=== PATIENT | female | born 1940 | race Caucasian/White ===

== ENCOUNTER → 2016-09-11 | Outpatient (CLI) | payer MEDICARE, MEDICAID ==
--- NOTE | 2016-09-11 16:00 | WOMENS IMAGING REPORT ---
EXAM DESCRIPTION: BONE DENSITY HIP/SPINE COMPLETED DATE/TIME: 09/11/2016 3:38 pm REASON FOR STUDY: M81.0 M81.0 AGE-RELATED OSTEOPOROSIS W/O CURRENT PATHOLOGICAL FRAC COMPARISON: None. TECHNIQUE: Dual-Energy X-ray Absorptiometry (DEXA) of the AP Spine and Hip. LIMITATIONS: None. FINDINGS: LUMBAR SPINE: The bone mineral density (BMD) measured from L1-L4 in the AP projection correlates with a T-score of -0.9, which is normal as defined by the World Health Organization. HIP: The bone mineral density (BMD) measured in the left hip correlates with a T-score of -2.9, which is o steoporosis as defined by the World Health Organization. IMPRESSION: 1. LUMBAR SPINE: NORMAL. 2. HIP: OSTEOPOROSIS. COMMENT: The World Health Organization defines low BMD as follows: T-score: Normal: Greater than -1.0 Osteopenia: Between -1.0 and -2.5 Osteoporosis: Less than -2.5 without fractures Established osteoporosis: Less than -2.5 with fractures In general, you may wish to consider: Diagnosis Treatment Follow-up DEXA Normal BMD Prevention 2-3 years Osteopenia Prevention/Therapy 1-2 years Osteoporosis Therapy Yearly TECHNICAL DOCUMENTATION: JOB ID: [id number] [employer]- All Rights Reserved
== END ==
LOC: WI 12:42
PROVIDERS: ATTEND Specialist
DX: M81.0 Age-related osteoporosis without current pathological fracture (principal)
CPT/HCPCS: 77080

== ENCOUNTER 2017-12-25 13:31 | Inpatient (IN) | payer MEDICARE, MEDICAID ==
--- NOTE | 2017-12-25 14:11 | ER Document Report ---
ED Cardiac - General Chief Complaint: Chest Pain > 30 Stated Complaint: CHEST PAIN Time Seen by Provider: 12/25/17 13:48 Mode of Arrival: Medic Information source: Patient, Relative TRAVEL OUTSIDE OF THE [place] IN LAST 30 DAYS: No - HPI Patient complains to provider of: Chest pain - 77-year-old female with a history of chronic pain as well as hypertension the presents for evaluation of intermittent left-sided chest pain which is developed over the last month but has been worsening and increasing in frequency more noticeable with exertion including things like vacuuming at home. She also generally feels short of breath during these episodes, with rest her episodes improved. Because the pain had increased in frequency they decided present for evaluation today, she denies any history of heart attack in the past, chest pain in the past, family history of heart attacks. - Related Data Allergies/Adverse Reactions: aspirin [Aspirin] Allergy (Severe, Verified 12/25/17 14:05) Hives caffeine [From Norgesic] Allergy (Severe, Verified 12/25/17 14:05) itching cefaclor [From Ceclor] Allergy (Severe, Verified 12/25/17 14:05) Shortness of Breath cephalexin [Cephalexin] Allergy (Severe, Verified 12/25/17 14:05) Shortness of Breath cephalexin monohydrate [From Keflex] Allergy (Severe, Verified 12/25/17 14:05) Shortness of Breath Choline Salicylate [From Trilisate] Allergy (Severe, Verified 12/25/17 14:05) Shortness of Breath Magnesium Salicylate [From Trilisate] Allergy (Severe, Verified 12/25/17 14:05) Shortness of Breath neomycin [Neomycin] Allergy (Severe, Verified 12/25/17 14:05) Hives norfloxacin [From Noroxin] Allergy (Severe, Verified 12/25/17 14:05) itching NSAIDS (Non-Steroidal Anti-Inflamma [Nsaids] Allergy (Severe, Verified 12/25/17 14:05) unsure orphenadrine citrate [From Norgesic] Allergy (Severe, Verified 12/25/17 14:05) itching piroxicam [From Feldene] Allergy (Severe, Verified 12/25/17 14:05) Shortness of Breath tetracycline [Tetracycline] Allergy (Severe, Verified 12/25/17 14:05) Shortness of Breath penicillin G [Penicillin G] Allergy (Verified 12/25/17 14:05) sob hives chloroncytin Allergy (Severe, Uncoded 12/25/17 14:05) unsure Past Medical History - General Information source: Patient, Relative - Social History Smoking Status: Unknown if Ever Smoked Family History: None - Past Medical History Cardiac Medical History: Reports: Hx Hypertension - contr meds Denies: Hx Heart Attack Pulmonary Medical History: Denies: Hx Asthma, Hx Bronchitis, Hx COPD, Hx Pneumonia Neurological Medical History: Denies: Hx Cerebrovascular Accident, Hx Seizures Musculoskeletal Medical History: Reports Hx Arthritis Past Surgical History: Denies: Hx Pacemaker - Immunizations Hx Diphtheria, Pertussis, Tetanus Vaccination: No Review of Systems - Review of Systems -: Yes All other systems reviewed and negative Physical Exam - Vital signs Vitals: Temp Pulse Resp BP Pulse Ox 97.5 F 65 18 131/75 H 95 12/25/17 13:49 12/25/17 13:49 12/25/17 13:49 12/25/17 13:49 12/25/17 13:49 - General General appearance: Appears well, Other - Diminutive chronically ill-appearing 77-year-old woman In distress: None - HEENT Head: Normocephalic Eyes: Normal Conjunctiva: Normal Cornea: Normal Extraocular movements intact: Yes Eyelashes: Normal - Respiratory Respiratory status: No respiratory distress Chest status: Nontender Breath sounds: Normal Chest palpation: Normal - Cardiovascular Rhythm: Regular Heart sounds: Normal auscultation Murmur: No Friction rub: No Genna's crunch: No - Abdominal Inspection: Normal Distension: No distension Tenderness: Nontender Organomegaly: No organomegaly - Back Back: Normal - Extremities General upper extremity: Normal inspection, Nontender, Normal ROM, Normal strength General lower extremity: Normal inspection, Nontender, Normal ROM, Normal strength - Neurological Neuro grossly intact: Yes Cognition: Normal Orientation: AAOx4 Anne-Marie Coma Scale Eye Opening: Spontaneous Anne-Marie Coma Scale Verbal: Oriented Coden Coma Scale Motor: Obeys Commands Coden Coma Scale Total: 15 - Psychological Associated symptoms: Normal affect Course - Re-evaluation Re-evalutation: 12/25/17 14:09 77-year-old female with a history consistent with possible unstable angina. Does not have known history of cardiac disease in the past previously has an EKG in our system from 2010 though she is uncertain at that visit was for. Her EKG today demonstrates Q waves in aVR, V1 V2 and T-wave inversions in V3 V4. Her age 77, her history is concerning, her risk factors are hypertension and arthritis, and total pending her troponin her heart score is 6. She is allergic to aspirin when asked what her reaction is she notes that her tongue swells up markedly as such we have deferred administration of aspirin at this time. We will obtain troponin, placed on monitor, basic chemistry as well as chest x- ray. Will plan for likely admission and monitoring in hospital. 12/25/17 16:11 Patient with elevated troponin, will repeat EKG, will initiate heparin, will initiate Plavix as patient is allergic to aspirin has anaphylaxis reaction with tongue swelling. Reassess patient currently she is hemodynamically stable, her EKG remains unchanged with what appears to be a Wellens formation in V1 V2 with persistent inversion and depressions through V5. Currently patient is chest pain-free. We will plan for this patient to be admitted to the hospital, reassessed and monitored. Currently whether precludes transfer of patient, has spoken to telemetry rn Dr. Macias who agrees to evaluate the patient as necessary, has agreed to evaluate the patient at the bedside in case of any status change. Spoke to the on-call hospitalist who is in agreement with evaluation and admission including admission to the stepdown. We will continue to monitor patient in emergency department reassess as necessary and plan for admission, she is received Plavix at this time as well as heparin. Spoke about the benefits and risks of potentially adding nitroglycerin or beta mohini but deferred to admitting hospitalist at this time. - Vital Signs Vital signs: Temp Pulse Resp BP Pulse Ox 97.5 F 65 16 131/75 H 95 12/25/17 13:49 12/25/17 13:49 12/25/17 14:02 12/25/17 13:49 12/25/17 14:02 - Laboratory Result Diagrams: 12/25/17 13:58 12/25/17 13:58 Laboratory results interpreted by me: 12/25/17 12/25/17 13:58 13:58 AST 43 H Creatine Kinase 137 H CK-MB (CK-2) 4.91 H Critical Care Note - Critical Care Note Total time excluding time spent on procedures (mins): 35 Discharge - Discharge Clinical Impression: NSTEMI (non-ST elevated myocardial infarction) Chest pain Qualifiers: Chest pain type: unspecified Qualified Code(s): R07.9 - Chest pain, unspecified Condition: Critical Disposition: ADMITTED INPATIENT Admitting Provider: Hospitalist Unit Admitted: IMCU Referrals: ARFAEL SEAY MD [Primary Care Provider] - Follow up as needed
[2017-12-25 14:13] LABS: ABSOLUTE BASOPHILS # (AUTO) 0.1 10^3/uL (0.0-0.2); ABSOLUTE EOSINOPHILS # (AUTO) 0.1 10^3/uL (0.0-0.6); ABSOLUTE LYMPHOCYTES (AUTO) 1.9 10^3/uL (0.5-4.7); ABSOLUTE MONOCYTES (AUTO) 0.7 10^3/uL (0.1-1.4); ABSOLUTE NEUT (AUTO) 5.4 10^3/uL (1.7-8.2); BASOPHILS % (AUTO) 0.6 % (0-2); EOSINOPHILS % (AUTO) 0.9 % (0-6); HEMATOCRIT 42.4 % (36.0-47.0); HEMOGLOBIN 13.8 g/dL (12.0-15.5); LYMPHOCYTES % (AUTO) 23.4 % (13-45); MEAN CORPUSCULAR HEMOGLOBIN 30.5 pg (27.0-33.4); MEAN CORPUSCULAR HGB CONC 32.6 g/dL (32.0-36.0); MEAN CORPUSCULAR VOLUME 94 fl (80-97); MONOCYTES % (AUTO) 8.7 % (3-13); PLATELET COUNT 231 10^3/uL (150-450); RED BLOOD COUNT 4.54 10^6/uL (3.72-5.28); RED CELL DISTRIBUTION WIDTH 12.7 % (11.5-14.0); SEGMENTED NEUTROPHILS % (AUTO) 66.4 % (42-78); TOTAL CELLS COUNTED % (AUTO) 100 %; WHITE BLOOD COUNT 8.1 10^3/uL (4.0-10.5)
[2017-12-25 14:18] LABS: ALANINE AMINOTRANSFERASE 28 U/L (9-52); ALBUMIN 3.9 g/dL (3.5-5.0); ALKALINE PHOSPHATASE 55 U/L (38-126); ANION GAP 8 (5-19); ASPARTATE AMINO TRANSFERASE 43 U/L (14-36); BILIRUBIN,DIRECT 0.3 mg/dL (0.0-0.4); BILIRUBIN,TOTAL 0.6 mg/dL (0.2-1.3); BLOOD UREA NITROGEN 11 mg/dL (7-20); CALCIUM 9.2 mg/dL (8.4-10.2); CARBON DIOXIDE 29 mmol/L (22-30); CHLORIDE 107 mmol/L (98-107); CREATINE KINASE 137 U/L (30-135); GLUCOSE 98 mg/dL (75-110); POTASSIUM 3.7 mmol/L (3.6-5.0); SODIUM 143.9 mmol/L (137-145); TOTAL PROTEIN 6.9 g/dL (6.3-8.2)
[2017-12-25 14:30] LABS: CREATINE KINASE MB 4.91 ng/mL (<4.55)
[2017-12-25 14:31] LABS: TROPONIN I 1.48 ng/mL
[2017-12-25] MEDS ORDERED: HEPARIN SOD (PORCINE) 1,000 UNIT/ML 10 ML VIAL IV ONE (14:40)
[2017-12-25] MEDS: HEPARIN SODIUM,PORCINE/D5W 25,000 UNIT/250 ML RTUINJ IV PRN (14:52)
[2017-12-25 14:55] LABS: PROTHROMBIN TIME 13.7 SEC (11.4-15.4)
[2017-12-25] MEDS ORDERED: CLOPIDOGREL BISULFATE 75 MG TABLET PO ONE ×2 (14:55→15:35)
[2017-12-25 14:56] LABS: PARTIAL THROMBOPLASTIN TIME 29.4 SEC (23.5-35.8)
[2017-12-25] MEDS ORDERED: METOPROLOL SUCCINATE 25 MG TAB.SR.24H PO ONE (15:34)
[2017-12-25] MEDS ORDERED: NITROGLYCERIN 2% OINTMENT 1 GM PACKET TP ONE (15:35)
--- NOTE | 2017-12-25 15:37 | RADIOLOGY REPORT (SQ) ---
EXAM DESCRIPTION: CHEST 2 VIEWS COMPLETED DATE/TIME: 12/25/2017 3:18 pm REASON FOR STUDY: chest pain COMPARISON: None. EXAM PARAMETERS: NUMBER OF VIEWS: two views TECHNIQUE: Digital Frontal and Lateral radiographic views of the chest acquired. RADIATION DOSE: NA LIMITATIONS: none FINDINGS: LUNGS AND PLEURA: No opacities, masses or pneumothorax. No pleural effusion. MEDIASTINUM AND HILAR STRUCTURES: Moderate size hiatal hernia with air-fluid level. No masses or con tour abnormalities. HEART AND VASCULAR STRUCTURES: Moderate cardiomegaly BONES: Osteoporotic, chronic T vertebra plana deformity. Advanced arthritis both shoulders HARDWARE: None in the chest. OTHER: No other significant finding. IMPRESSION: Cardiomegaly. Hiatal hernia. No acute findings TECHNICAL DOCUMENTATION: JOB ID: [id number] [employer]- All Rights Reserved Reading location - IP/workstation name: [email or web address]
[2017-12-25] MEDS ORDERED: NITROGLYCERIN 0.4 MG/TAB 25 TAB/BOTTLE SL PRN (15:53)
[2017-12-25] MEDS ORDERED: ONDANSETRON HCL INJ/PF 4 MG/2 ML SDV IV PRN (15:53)
--- NOTE | 2017-12-25 16:57 | EKG REPORT ---
SEVERITY:- ABNORMAL ECG - SINUS RHYTHM LOW VOLTAGE IN FRONTAL LEADS ABNORMAL T, CONSIDER ISCHEMIA, ANTERIOR LEADS : Confirmed by: Hawa Arroyo 25-Dec-2017 16:56:32
--- NOTE | 2017-12-25 16:57 | EKG REPORT ---
SEVERITY:- ABNORMAL ECG - SINUS RHYTHM LOW VOLTAGE IN FRONTAL LEADS ABNORMAL T, CONSIDER ISCHEMIA, ANTERIOR LEADS BORDERLINE PROLONGED QT INTERVAL : Confirmed by: Hawa Arroyo 25-Dec-2017 16:56:54
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
[2017-12-25] MEDS: NITROGLYCERIN 2% OINTMENT 1 GM PACKET TP SCH (19:13)
[2017-12-25] MEDS: MORPHINE SULFATE 10 MG/ML INJ IV PRN (19:24)
[2017-12-25] MEDS: GABAPENTIN 300 MG CAPSULE PO SCH (21:31)
[2017-12-25] MEDS: MORPHINE SULFATE SR 15 MG TABLET PO SCH (21:31)
[2017-12-25] MEDS: ATORVASTATIN CALCIUM 40 MG TABLET PO SCH (21:32)
[2017-12-25] MEDS: FAMOTIDINE 20 MG TABLET PO SCH (21:32)
[2017-12-25] MEDS: HEPARIN SOD (PORCINE) 1,000 UNIT/ML 10 ML VIAL IV PRN (21:32)
[2017-12-26] MEDS: NITROGLYCERIN 2% OINTMENT 1 GM PACKET TP SCH ×3 (00:24→13:35)
[2017-12-26] MEDS: GABAPENTIN 300 MG CAPSULE PO SCH ×3 (06:00→21:40)
[2017-12-26] MEDS: MORPHINE SULFATE SR 15 MG TABLET PO SCH ×3 (06:00→21:39)
[2017-12-26 07:07] LABS: HEMATOCRIT 40.7 % (36.0-47.0); HEMOGLOBIN 13.4 g/dL (12.0-15.5); MEAN CORPUSCULAR HEMOGLOBIN 30.3 pg (27.0-33.4); MEAN CORPUSCULAR VOLUME 92 fl (80-97); PLATELET COUNT 219 10^3/uL (150-450); RED BLOOD COUNT 4.43 10^6/uL (3.72-5.28); RED CELL DISTRIBUTION WIDTH 12.3 % (11.5-14.0); WHITE BLOOD COUNT 7.4 10^3/uL (4.0-10.5)
[2017-12-26 07:38] LABS: ANION GAP 6 (5-19); BLOOD UREA NITROGEN 9 mg/dL (7-20); CALCIUM 8.3 mg/dL (8.4-10.2); CARBON DIOXIDE 26 mmol/L (22-30); CHLORIDE 109 mmol/L (98-107); CHOLESTEROL 109.56 mg/dL (0-200); GLUCOSE 102 mg/dL (75-110); POTASSIUM 3.3 mmol/L (3.6-5.0); SODIUM 141.3 mmol/L (137-145); TRIGLYCERIDES 62 mg/dL (<150)
[2017-12-26 07:48] LABS: DIRECT LDL 40 mg/dL (<100)
[2017-12-26 09:10] LABS: APPEARANCE,URINE CLEAR; BILIRUBIN,URINE NEGATIVE (NEGATIVE); COLOR,URINE YELLOW; GLUCOSE, URINE NEGATIVE (NEGATIVE); KETONES,URINE NEGATIVE (NEGATIVE)
[2017-12-26 09:11] LABS: LEUKOCYTE ESTERASE,URINE NEGATIVE (NEGATIVE); NITRITE,URINE NEGATIVE (NEGATIVE); PROTEIN,URINE NEGATIVE (NEGATIVE); URINE SPECIFIC GRAVITY 1.011
--- NOTE | 2017-12-26 09:50 | EKG REPORT ---
SEVERITY:- ABNORMAL ECG - SINUS RHYTHM ABNORMAL T, CONSIDER ISCHEMIA, ANT-LAT LEADS : Confirmed by: Hawa Arroyo 26-Dec-2017 09:49:10
[2017-12-26] MEDS: CLOPIDOGREL BISULFATE 75 MG TABLET PO SCH (09:58)
[2017-12-26] MEDS: FAMOTIDINE 20 MG TABLET PO SCH ×2 (09:59→21:39)
[2017-12-26] MEDS: TAMSULOSIN HCL 0.4 MG CAP.SR.24H PO SCH (09:59)
[2017-12-26] MEDS ORDERED: METOPROLOL TARTRATE 25 MG TABLET PO SCH ×2 (10:00)
[2017-12-26] MEDS: LISINOPRIL 5 MG TABLET PO SCH (10:01)
--- NOTE | 2017-12-26 10:01 | PDOC PROGRESS REPORT ---
Subjective Progress Note for:: 12/26/17 Subjective:: 77-year-old white female with acute non-ST elevated [place]. Troponins trending downward. Event likely took place the evening prior to admission. Patient remains on heparin no evidence of bleeding. Patient denies any chest pain since admission. Hemodynamically stable. Reason For Visit: NON-ST ELEVATION (NSTEMI) MYOCARDIAL INFARCTION Physical Exam Vital Signs: Temp Pulse Resp BP Pulse Ox 97.5 F 64 18 120/76 95 12/26/17 08:19 12/26/17 08:19 12/26/17 08:19 12/26/17 08:19 12/26/17 08:19 Intake & Output 12/25/17 12/26/17 12/27/17 06:59 06:59 06:59 Intake Total 32 Output Total 0 Balance 32 Weight 36.7 kg General appearance: PRESENT: no acute distress, well-developed, well-nourished Head exam: PRESENT: atraumatic, normocephalic Eye exam: PRESENT: conjunctiva pink, EOMI, PERRLA. ABSENT: scleral icterus Neck exam: ABSENT: carotid bruit, JVD, lymphadenopathy, thyromegaly Cardiovascular exam: PRESENT: RRR. ABSENT: diastolic murmur, rubs, systolic murmur GI/Abdominal exam: PRESENT: normal bowel sounds, soft. ABSENT: distended, guarding, mass, organolmegaly, rebound, tenderness Extremities exam: ABSENT: calf tenderness, pedal edema, tenderness Musculoskeletal exam: PRESENT: ambulatory. ABSENT: tenderness Neurological exam: PRESENT: alert, awake, oriented to person, oriented to place , oriented to time, oriented to situation, CN II-XII grossly intact. ABSENT: motor sensory deficit Results Laboratory Results: 12/26/17 07:01 12/26/17 07:01 12/26/17 12/26/17 12/26/17 07:01 07:01 08:09 WBC 7.4 RBC 4.43 Hgb 13.4 Hct 40.7 MCV 92 MCH 30.3 MCHC 33.0 RDW 12.3 Plt Count 219 Sodium 141.3 Potassium 3.3 L Chloride 109 H Carbon Dioxide 26 Anion Gap 6 BUN 9 Creatinine 0.48 L Est GFR ( Amer) > 60 Est GFR (Non-Af Amer) > 60 Glucose 102 Calcium 8.3 L Triglycerides 62 Cholesterol 109.56 LDL Cholesterol Direct 40 VLDL Cholesterol 12.0 HDL Cholesterol 59 Urine Color Urine Appearance Urine pH Ur Specific [place] Urine Protein Urine Glucose (UA) Urine Ketones Urine Blood Urine Nitrite Ur Leukocyte Esterase Urine WBC (Auto) Urine RBC (Auto) Stool Occult Blood NEGATIVE 12/26/17 08:09 WBC RBC Hgb Hct MCV MCH MCHC RDW Plt Count Sodium Potassium Chloride Carbon Dioxide Anion Gap BUN Creatinine Est GFR ( Amer) Est GFR (Non-Af Amer) Glucose Calcium Triglycerides Cholesterol LDL Cholesterol Direct VLDL Cholesterol HDL Cholesterol Urine Color YELLOW Urine Appearance CLEAR Urine pH 7.0 Ur Specific [place] 1.011 Urine Protein NEGATIVE Urine Glucose (UA) NEGATIVE Urine Ketones NEGATIVE Urine Blood NEGATIVE Urine Nitrite NEGATIVE Ur Leukocyte Esterase NEGATIVE Urine WBC (Auto) 1 Urine RBC (Auto) 1 Stool Occult Blood 12/25/17 12/26/17 12/26/17 19:36 01:22 07:01 Troponin I 1.380 1.330 1.020 Impressions: Chest X-Ray 12/25/17 14:03 IMPRESSION: Cardiomegaly. Hiatal hernia. No acute findings Assessment & Plan - Diagnosis (1) NSTEMI (non-ST elevated myocardial infarction) Is this a current diagnosis for this admission?: Yes Plan: Patient with anterior EKG changes that improved with treatment in the emergency room highly suspicious for LAD lesion.Admit to telemetry bed heparin drip 300 of Plavix p.o. metoprolol 12.5 twice daily discontinue amlodipine. Add Lipitor lipid panel in a.m. Echocardiogram pending Case discussed with supervisor printing shop. Increase metoprolol to 25 mg twice daily continue him to her continue heparin for an additional 24 hours. Continue Plavix. (2) HTN (hypertension), benign Is this a current diagnosis for this admission?: Yes Plan: Tolerating current medications monitor as titration advances (3) Osteoarthritis Qualifiers: Osteoarthritis location: unspecified site Osteoarthritis type: primary Qualified Code(s): M19.91 - Primary osteoarthritis, unspecified site Is this a current diagnosis for this admission?: Yes Plan: Continue patient's MS Contin (4) Chronic pain Is this a current diagnosis for this admission?: Yes Plan: Continue patient's MS Contin IV morphine as needed for breakthrough pain (5) Hypokalemia Is this a current diagnosis for this admission?: Yes Plan: Begin p.o. supplementation repeat BMP in a.m. magnesium 2.1
[2017-12-26] MEDS ORDERED: POTASSIUM CHLORIDE 10 MEQ CAPSULE.ER PO ONE (11:33)
[2017-12-26] MEDS: POTASSIUM CHLORIDE 10 MEQ CAPSULE.ER PO SCH (11:42)
[2017-12-26] MEDS ORDERED: ISOSORBIDE MONONITRATE 30 MG TAB.ER.24H PO ONE ×2 (15:17→15:22)
[2017-12-26] MEDS: ISOSORBIDE MONONITRATE 30 MG TAB.ER.24H PO SCH (15:20)
[2017-12-26] MEDS: ATORVASTATIN CALCIUM 40 MG TABLET PO SCH (21:40)
[2017-12-26] MEDS: METOPROLOL TARTRATE 25 MG TABLET PO SCH (21:41)
[2017-12-26] MEDS: HEPARIN SOD (PORCINE) 1,000 UNIT/ML 10 ML VIAL IV PRN (23:05)
[2017-12-26] MEDS: HEPARIN SODIUM,PORCINE/D5W 25,000 UNIT/250 ML RTUINJ IV PRN (23:05)
[2017-12-27] MEDS: GABAPENTIN 300 MG CAPSULE PO SCH ×3 (05:45→21:17)
[2017-12-27] MEDS: MORPHINE SULFATE SR 15 MG TABLET PO SCH ×3 (05:45→21:21)
[2017-12-27 06:03] LABS: BLOOD UREA NITROGEN 11 mg/dL (7-20); CALCIUM 8.3 mg/dL (8.4-10.2); GLUCOSE 94 mg/dL (75-110); POTASSIUM 3.6 mmol/L (3.6-5.0)
[2017-12-27 06:08] LABS: ANION GAP 6 (5-19); CARBON DIOXIDE 26 mmol/L (22-30); CHLORIDE 108 mmol/L (98-107)
[2017-12-27] MEDS: FAMOTIDINE 20 MG TABLET PO SCH ×2 (09:52→21:17)
[2017-12-27] MEDS: METOPROLOL TARTRATE 25 MG TABLET PO SCH ×2 (09:53→21:18)
[2017-12-27] MEDS: POTASSIUM CHLORIDE 10 MEQ CAPSULE.ER PO SCH (09:53)
[2017-12-27] MEDS: TAMSULOSIN HCL 0.4 MG CAP.SR.24H PO SCH (09:54)
[2017-12-27] MEDS: CLOPIDOGREL BISULFATE 75 MG TABLET PO SCH (09:54)
[2017-12-27] MEDS: LISINOPRIL 5 MG TABLET PO SCH (10:03)
--- NOTE | 2017-12-27 10:43 | PDOC PROGRESS REPORT ---
Subjective Progress Note for:: 12/27/17 Subjective:: 77-year-old white female with acute non-ST elevated [place]. Troponins trending downward. Event likely took place the evening prior to admission. Patient remains on heparin no evidence of bleeding. Patient denies any chest pain since admission. Hemodynamically stable.Tolerating titration of metoprolol. Bradycardia documented to his low as 50 bpm no lower.Tolerating meals. Reason For Visit: NON-ST ELEVATION (NSTEMI) MYOCARDIAL INFARCTION Physical Exam Vital Signs: Temp Pulse Resp BP Pulse Ox 97.7 F 64 15 118/76 95 12/27/17 07:22 12/27/17 07:22 12/27/17 07:22 12/27/17 07:22 12/27/17 07:22 Intake & Output 12/26/17 12/27/17 12/28/17 06:59 06:59 06:59 Intake Total 32 514 Output Total 0 Balance 32 514 Weight 36.7 kg 36.9 kg General appearance: PRESENT: no acute distress, well-developed, well-nourished Neck exam: PRESENT: carotid bruit Respiratory exam: PRESENT: clear to auscultation ti. ABSENT: rales, rhonchi, wheezes Cardiovascular exam: PRESENT: RRR. ABSENT: diastolic murmur, rubs, systolic murmur GI/Abdominal exam: PRESENT: normal bowel sounds, soft. ABSENT: distended, guarding, mass, organolmegaly, rebound, tenderness Musculoskeletal exam: PRESENT: full ROM, normal inspection. ABSENT: deformity Neurological exam: PRESENT: alert, altered, oriented to person, oriented to place, oriented to time, oriented to situation, CN II-XII grossly intact. ABSENT: motor sensory deficit Skin exam: PRESENT: dry, intact, warm. ABSENT: cyanosis, rash Results Laboratory Results: 12/26/17 07:01 12/27/17 04:56 12/27/17 04:56 Sodium 140.0 Potassium 3.6 Chloride 108 H Carbon Dioxide 26 Anion Gap 6 BUN 11 Creatinine 0.58 Est GFR ( Amer) > 60 Est GFR (Non-Af Amer) > 60 Glucose 94 Calcium 8.3 L 12/25/17 12/26/17 12/26/17 19:36 01:22 07:01 Troponin I 1.380 1.330 1.020 Impressions: Chest X-Ray 12/25/17 14:03 IMPRESSION: Cardiomegaly. Hiatal hernia. No acute findings Assessment & Plan - Diagnosis (1) NSTEMI (non-ST elevated myocardial infarction) Is this a current diagnosis for this admission?: Yes Plan: Patient with anterior EKG changes that improved with treatment in the emergency room highly suspicious for LAD lesion. ECG remains stable. Admit to telemetry bed heparin drip 300 of Plavix p.o. metoprolol 12.5 twice daily discontinue amlodipine. Add Lipitor lipid panel in a.m. Echocardiogram pending Case discussed with top lift and automatic window repairer. Patient tolerating increased metoprolol to 25 mg twice daily continue him to her continue heparin for an additional 24 hours. Continue Plavix. Patient will need cardiac catheterization when transfer can be arranged. (2) HTN (hypertension), benign Is this a current diagnosis for this admission?: Yes Plan: Hemodynamically stable no change in medications (3) Hypokalemia Is this a current diagnosis for this admission?: Yes Plan: Potassium 3.6 continue p.o. supplementation (4) Osteoarthritis Qualifiers: Osteoarthritis location: unspecified site Osteoarthritis type: primary Qualified Code(s): M19.91 - Primary osteoarthritis, unspecified site Is this a current diagnosis for this admission?: Yes Plan: Continue patient's MS Contin (5) Chronic pain Is this a current diagnosis for this admission?: Yes Plan: Continue patient's MS Contin IV morphine as needed for breakthrough pain
--- NOTE | 2017-12-27 16:03 | Progress Note ---
Provider Note Provider Note: PROGRESS NOTE by Dr. Steven assessment for 12/27/2017. SUBJECTIVE: The patient has no further anginal symptoms, namely chest pain or shortness of breath or heartburn. She has no shortness of breath is no PND orthopnea. There is no arrhythmias seen on the monitor. There is no leg edema. There is no cough or sputum production. There is no wheezing. There is no TIA CVA symptoms. There is no arrhythmias seen on the monitor. PHYSICAL EXAMINATION: The patient is a frail build but appears to be well groomed in no acute distress. Selected Entries 12/27/17 12/27/17 12/27/17 07:22 12:00 15:22 Temperature 97.7 F 97.5 F 98.4 F Temperature Oral Source Pulse Rate 64 54 L 63 Respiratory 15 15 16 Rate Blood Pressure 118/76 105/55 L Blood Pressure 92/49 L [Right Upper Arm] Blood Pressure 71 Mean O2 Sat by Pulse 95 98 97 Oximetry Oxygen Delivery Room Air Method ( includes room air) HEAD: Is atraumatic normocephalic. EYES: Pupils are equal round regular reactive light accommodation extraocular movements are normal there is no conjunctival pallor there is no scleral icterus.. ENT: Is negative. NECK: Neck is supple there is no JVD carotids equal there is no bruit there is no lymphadenopathy there is no goiter. Trachea central. There is no accessory muscles of respiration in use. LUNGS: Lungs are clear to auscultation percussion without any rhonchi rales or wheezing. HEART: S1-S2 is heard there is no S3 gallop there is no S4 gallop the systolic murmur in the left sternal border and apex there is no rub. ABDOMEN: Is soft nontender there is no hepatosplenomegaly..Bowel sounds well heard there is no tender areas of masses. There is no rebound guarding or rigidity. EXTREMITIES: Femorals are well felt there is no femoral bruits and pulses are well felt there is no pedal edema there is no DVT vasculitis is no calf tenderness. There is no sinus or clubbing capillary refill is normal. STATISTICS INTERN: Patient is conscious awake alert oriented times with no focal deficits. PSYCHIATRIC: The patient judgment and insight are intact her affect is normal. The patient EKG shows deep T-wave inversion in the anterior leads V1 to V4 and in the apical lateral leads V5 to V6. The patient echocardiogram shows severe hypokinesis of all LV apical segments, the antral septum, and moderate hypokinesis of the mid lateral mid IV septal garcia. The overall ejection fraction is probably 40%. There is also mitral regurgitation present. Note this is suggestive of left anterior descending artery lesion after the origin of the first diagonal branch. The EKG changes are evolutionary changes of a non -ST elevation [place]. IMPRESSION/recommendation: 1 NON-ST elevation [place]: At present the patient's pain-free. We will discontinue the patient's heparin tomorrow. Continue the patient's beta-mohini, and Plavix since the patient is allergic to aspirin. Recommend early cardiac catheterization. Will check with the [facility] but the patient wants to be transferred to see if they cardiac catheterization as available on Friday. This has been discussed with the patient patient's . 2. Hypertension: Well controlled. 3. History of chronic pain syndrome: Patient is on analgesic medication, and is comfortable at present. 4. Excellent lipid levels. But in view of the patient's non-ST elevation [place] would recommend continue the patient on statins. [facility] or if cath is not available there then [facility] to see if we can transfer the patient for cardiac catheterization. Since the patient has a significant LAD lesion. This has been discussed with the patient patient's . They are aware of the benefits and risks of the transfer. Discussed with the hospitalist. Note medications have been reviewed. Note 40 minutes spent on this patient more than 50% of time spent in direct patient care medical decision making is of high complexity. The patient and the patient's has seen a cardiac catheterization teaching video. I explained the procedure of cardiac catheterization the benefits risks and complications of the cardiac catheterization. On the benefits of the cardiac catheterization also were discussed. Thank you end of dictation. Will follow with you 12/26/17 12/27/17 07:01 04:56 Sodium 140.0 Potassium 3.6 Chloride 108 H Carbon Dioxide 26 BUN 11 Creatinine 0.58 Est GFR (Non-Af Amer) > 60 Glucose 94 Calcium 8.3 L Triglycerides 62 Cholesterol 109.56 LDL Cholesterol Direct 40 VLDL Cholesterol 12.0 HDL Cholesterol 59
--- NOTE | 2017-12-27 17:11 | XCELERA REPORT ---
[address] [address] Transthoracic Echocardiogram Report Name: EWA PIERCE Age: 77 yrs Gender: Female : 1940 Patient Status: Inpatient Patient Location: [address] [place], [place] [address]A Study Date: 12/25/2017 05:26 PM Height: 60 in Weight: 89 lb BSA: 1.3 m2 Procedure: A two-dimensional transthoracic echocardiogram with color flow Doppler was performed. The study was technically difficult with many images being suboptimal in quality. Reason For Study: LV Function, size, wall thickness,Valve Function History: NSTEMI. Ordering Physician: SEAN BANSAL Performed By: Jannette Bloom Interpretation Summary The study was technically difficult with many images being suboptimal in quality. The left ventricle is normal in size. There is normal left ventricular wall thickness. LV EF is Probably 40% Left ventricular systolic function is moderately reduced. Doppler measurements suggest impaired left ventricular relaxation, which is associated with grade I/IV or mild diastolic dysfunction All LV apical segments and the anteroseptal wall are severely hypokinetic.All mid IV sepuml ,mid anterior wall amd mid lateral wall are moderatelt hypokinetic.Suspect proximal LAD after First diagonal lesion. There is no thrombus. There is no ventricular septal defect visualized. The right ventricle is normal in size and function. The right atrium is normal. The left atrial size is normal. The interatrial septum is intact with no evidence for an atrial septal defect. There is no evidence of mitral valve prolapse. There is no vegetation seen on the mitral valve. There is no mitral valve stenosis. There is a mild amount of mitral regurgitation There is no aortic valvular vegetation. There is no LVOT obstruction. No AV jet hence cannot accuratelt assess severity of .Visually there is probably mild . There is a mild to moderate amount of aortic regurgitation There is a moderate amount of tricuspid regurgitation There is mild pulmonary hypertension by echo RVSP is 40 mm of Hg , with RA mean of 10.(IVC not seen well). There is no pulmonic valvular stenosis. There is no pulmonic valvular regurgitation. There is no pericardial effusion. MMode/2D Measurements & Calculations RVDd: 2.2 cm LVIDd: 5.2 cm FS: 37.5 % Ao root diam: 2.5 cm IVSd: 1.1 cm LVIDs: 3.3 cm EDV(Teich): 129.7 ml Ao root area: 4.9 cm2 LVPWd: 0.98 cm ESV(Teich): 42.6 ml LA dimension: 3.9 cm EF(Teich): 67.2 % Doppler Measurements & Calculations MV E max cyndy: MV P1/2t max cyndy: AI max cyndy: LV V1 max P.8 cm/sec 65.9 cm/sec 465.9 cm/sec 5.6 mmHg MV A max cyndy: MV P1/2t: 69.1 msec AI max PG: LV V1 max: 75.0 cm/sec MVA(P1/2t): 3.2 cm2 86.8 mmHg 118.0 cm/sec MV E/A: 0.72 MV dec slope: AI dec slope: 226.8 cm/sec2 279.5 cm/sec2 AI P1/2t: MV dec time: 601.5 msec 0.26 sec PA V2 max: TR max cyndy: AV P1/2t-pr_phl: MV P1/2t-pr_phl: 101.8 cm/sec 274.2 cm/sec 608.8 msec 69.1 msec PA max PG: TR max P.1 mmHg 4.1 mmHg Left Ventricle The left ventricle is normal in size. There is normal left ventricular wall thickness. LV EF is Probably 40%. Left ventricular systolic function is moderately reduced. Doppler measurements suggest impaired left ventricular relaxation, which is associated with grade I/IV or mild diastolic dysfunction. All LV apical segments and the anteroseptal wall are severely hypokinetic.All mid IV sepuml ,mid anterior wall amd mid lateral wall are moderatelt hypokinetic.Suspect proximal LAD after First diagonal lesion. There is no thrombus. There is no ventricular septal defect visualized. Right Ventricle The right ventricle is normal in size and function. Atria The right atrium is normal. The left atrial size is normal. The interatrial septum is intact with no evidence for an atrial septal defect. Mitral Valve There is no evidence of mitral valve prolapse. There is no vegetation seen on the mitral valve. There is no mitral valve stenosis. There is a mild amount of mitral regurgitation. Aortic Valve There is no aortic valvular vegetation. There is no LVOT obstruction. No AV jet hence cannot accuratelt assess severity of .Visually there is probably mild . There is a mild to moderate amount of aortic regurgitation. Tricuspid Valve There is no tricuspid stenosis. There is a moderate amount of tricuspid regurgitation. There is mild pulmonary hypertension by echo. RVSP is 40 mm of Hg , with RA mean of 10.(IVC not seen well). Pulmonic Valve There is no pulmonic valvular stenosis. There is no pulmonic valvular regurgitation. Great Vessels The aortic root is not well visualized but is probably normal size. Effusions There is no pericardial effusion. : SEAN BANSAL > Tenisha Hendrix
[2017-12-27] MEDS: ISOSORBIDE MONONITRATE 30 MG TAB.ER.24H PO SCH (17:51)
[2017-12-27] MEDS: ATORVASTATIN CALCIUM 40 MG TABLET PO SCH (21:17)
--- NOTE | 2017-12-27 21:20 | EKG REPORT ---
SEVERITY:- ABNORMAL ECG - SINUS RHYTHM LOW VOLTAGE IN FRONTAL LEADS ABNORMAL T, PROBABLE ISCHEMIA, ANT-LAT LEADS : Confirmed by: Hawa Arroyo 27-Dec-2017 21:19:53
[2017-12-27] MEDS: MORPHINE SULFATE 10 MG/ML INJ IV PRN (21:21)
[2017-12-28 06:03] LABS: ANION GAP 8 (5-19); BLOOD UREA NITROGEN 10 mg/dL (7-20); CALCIUM 8.5 mg/dL (8.4-10.2); CARBON DIOXIDE 24 mmol/L (22-30); CHLORIDE 108 mmol/L (98-107); GLUCOSE 99 mg/dL (75-110); SODIUM 139.8 mmol/L (137-145)
[2017-12-28] MEDS: MORPHINE SULFATE SR 15 MG TABLET PO SCH ×3 (06:05→22:58)
[2017-12-28] MEDS: GABAPENTIN 300 MG CAPSULE PO SCH ×3 (06:05→22:59)
[2017-12-28] MEDS: METOPROLOL TARTRATE 25 MG TABLET PO SCH ×2 (10:00→22:58)
[2017-12-28] MEDS: TAMSULOSIN HCL 0.4 MG CAP.SR.24H PO SCH (10:00)
[2017-12-28] MEDS: POTASSIUM CHLORIDE 10 MEQ CAPSULE.ER PO SCH (10:00)
[2017-12-28] MEDS: CLOPIDOGREL BISULFATE 75 MG TABLET PO SCH (10:01)
[2017-12-28] MEDS: FAMOTIDINE 20 MG TABLET PO SCH ×2 (10:01→22:59)
[2017-12-28] MEDS: LISINOPRIL 5 MG TABLET PO SCH (10:02)
--- NOTE | 2017-12-28 11:05 | PDOC PROGRESS REPORT ---
Subjective Progress Note for:: 12/28/17 Subjective:: 77-year-old white female with acute non-ST elevated [place]. Troponins trending downward. Event likely took place the evening prior to admission. Heparin discontinued no evidence of bleeding. Patient denies any chest pain since admission. Hemodynamically stable.Tolerating titration of metoprolol. Bradycardia documented to his low as 50 bpm no lower.Tolerating meals.Begin ambulating.Cardiology consult appreciated Reason For Visit: NON-ST ELEVATION (NSTEMI) MYOCARDIAL INFARCTION Physical Exam Vital Signs: Temp Pulse Resp BP Pulse Ox 98.5 F 65 16 121/74 94 12/28/17 07:48 12/28/17 07:48 12/28/17 07:48 12/28/17 07:48 12/28/17 07:48 Intake & Output 12/27/17 12/28/17 12/29/17 06:59 06:59 06:59 Intake Total 514 720 220 Balance 514 720 220 Weight 36.9 kg 39.3 kg General appearance: PRESENT: no acute distress, well-developed, well-nourished Head exam: PRESENT: atraumatic, normocephalic Eye exam: PRESENT: conjunctiva pink, EOMI, PERRLA. ABSENT: scleral icterus Ear exam: PRESENT: normal external ear exam Mouth exam: PRESENT: moist, tongue midline Neck exam: ABSENT: carotid bruit, JVD Respiratory exam: PRESENT: clear to auscultation ti. ABSENT: rales, rhonchi, wheezes Cardiovascular exam: PRESENT: RRR. ABSENT: diastolic murmur, rubs, systolic murmur Pulses: PRESENT: normal dorsalis pedis pul GI/Abdominal exam: PRESENT: normal bowel sounds, soft. ABSENT: distended, guarding, mass, organolmegaly, rebound, tenderness Extremities exam: PRESENT: full ROM, other - Diffuse osteoarthritis. ABSENT: calf tenderness, clubbing, pedal edema Neurological exam: PRESENT: alert, awake, oriented to person, oriented to place , oriented to time, oriented to situation, CN II-XII grossly intact. ABSENT: motor sensory deficit Psychiatric exam: PRESENT: appropriate affect, normal mood. ABSENT: homicidal ideation, suicidal ideation Skin exam: PRESENT: dry, intact, warm. ABSENT: cyanosis, rash Results Laboratory Results: 12/26/17 07:01 12/28/17 04:15 12/28/17 04:15 Sodium 139.8 Potassium 4.0 Chloride 108 H Carbon Dioxide 24 Anion Gap 8 BUN 10 Creatinine 0.61 Est GFR ( Amer) > 60 Est GFR (Non-Af Amer) > 60 Glucose 99 Calcium 8.5 Magnesium 2.1 12/25/17 12/26/17 12/26/17 19:36 01:22 07:01 Troponin I 1.380 1.330 1.020 Impressions: Chest X-Ray 12/25/17 14:03 IMPRESSION: Cardiomegaly. Hiatal hernia. No acute findings Assessment & Plan - Diagnosis (1) NSTEMI (non-ST elevated myocardial infarction) Is this a current diagnosis for this admission?: Yes Plan: Patient with anterior EKG changes that improved with treatment in the emergency room highly suspicious for LAD lesion. Cardiology consult noted. Dr. Hendrix to arrange for transfer for cardiac catheterization on Friday if possible.Lipitor decreased to 10 mg due to excellent lipid profile. Patient may begin to ambulate. Discontinue heparin continue Plavix beta-mohini and LUKAS inhibitor. (2) HTN (hypertension), benign Is this a current diagnosis for this admission?: Yes Plan: Hemodynamically stable no change in medications (3) Hypokalemia Is this a current diagnosis for this admission?: Yes Plan: Corrected (4) Osteoarthritis Qualifiers: Osteoarthritis location: unspecified site Osteoarthritis type: primary Qualified Code(s): M19.91 - Primary osteoarthritis, unspecified site Is this a current diagnosis for this admission?: Yes Plan: Continue patient's MS Contin (5) Chronic pain Is this a current diagnosis for this admission?: Yes Plan: Continue patient's MS Contin IV morphine as needed for breakthrough pain
[2017-12-28] MEDS: ISOSORBIDE MONONITRATE 30 MG TAB.ER.24H PO SCH (15:25)
[2017-12-28] MEDS: MORPHINE SULFATE 10 MG/ML INJ IV PRN (20:09)
--- NOTE | 2017-12-28 20:48 | Progress Note ---
Provider Note Provider Note: PROGRESS NOTE by Dr. Tenisha Hendrix on 12/28/2017. SUBJECTIVE: The patient denies any further chest pain or discomfort. There is no shortness of breath. There is no PND orthopnea or palpitations. There is no leg edema. There is no arrhythmias seen on the monitor. There is no TIA or CVA symptoms. There is no bleeding on anticoagulation. PHYSICAL EXAMINATION: Selected Entries 12/28/17 15:42 Temperature 98.1 F Pulse Rate 69 Respiratory 24 H Rate Blood Pressure 122/68 Blood Pressure 86 Mean O2 Sat by Pulse 95 Oximetry Oxygen Delivery Room Air Method The patient is a frail build, but well-nourished. In no acute distress. HEAD: Is atraumatic normocephalic. EYES: Pupils are equal round regular reactive light accommodation extraocular movements are normal there is no conjunctival pallor there is no scleral icterus.. ENT: Is negative. NECK: Neck is supple there is no JVD carotids equal there is no bruit there is no lymphadenopathy there is no goiter. Trachea central. There is no accessory muscles of respiration in use. LUNGS: Lungs are clear to auscultation percussion without any rhonchi rales or wheezing. HEART: S1-S2 is heard there is no S3 gallop there is no S4 gallop the systolic murmur in the left sternal border and apex there is no rub. ABDOMEN: Is soft nontender there is no hepatosplenomegaly..Bowel sounds well heard there is no tender areas of masses. There is no rebound guarding or rigidity. EXTREMITIES: Femorals are well felt there is no femoral bruits and pulses are well felt there is no pedal edema there is no DVT vasculitis is no calf tenderness. There is no sinus or clubbing capillary refill is normal. ELECTRIFICATION ADVISER: Patient is conscious awake alert oriented times with no focal deficits. PSYCHIATRIC: The patient judgment and insight are intact her affect is normal. 12/28/17 04:15 Sodium 139.8 Potassium 4.0 Chloride 108 H Carbon Dioxide 24 BUN 10 Creatinine 0.61 Est GFR ( Amer) > 60 Glucose 99 Calcium 8.5 Magnesium 2.1 IMPRESSION/recommendation: 1 NON-ST elevation [place]: At present the patient's pain-free. We will discontinue the patient's heparin tomorrow. Continue the patient's beta-mohini, and Plavix since the patient is allergic to aspirin. Recommend early cardiac catheterization. Will check with the [facility] but the patient wants to be transferred to see if they cardiac catheterization as available on Friday. This has been discussed with the patient patient's . 2. Hypertension: Well controlled. 3. History of chronic pain syndrome: Due to extensive osteoarthritis. Patient is on analgesic medication, and is comfortable at present. 4. Excellent lipid levels. But in view of the patient's non-ST elevation [place] would recommend continue the patient on statins. We will stop the heparin after 48 hours. Discussed with the [facility], they are not accepting any cardiac catheterization unless there are no emergency such as ST elevation [place]. Hence cannot transfer the patient since they will not accept the patient for cardiac catheterization there. Discussed with the transfer center in [facility]. They are easier ship self defense system mk1 operator is supposed to call me back. Due to problems with the telephone I still have not been able to talk to the ship self defense system mk1 operator. But will keep trying. This has been discussed with the patient and . Note 40 minutes spent on this patient more than 50% of time spent in direct patient care. Medical decision making is of high complexity.. Note that the medications have been reviewed. Will follow with you. Thanking you end of dictation.
[2017-12-28] MEDS: ATORVASTATIN CALCIUM 40 MG TABLET PO SCH (23:00)
[2017-12-29] MEDS: MORPHINE SULFATE 10 MG/ML INJ IV PRN ×4 (00:14→15:30)
[2017-12-29] MEDS: MORPHINE SULFATE SR 15 MG TABLET PO SCH ×2 (05:33→13:19)
[2017-12-29] MEDS: GABAPENTIN 300 MG CAPSULE PO SCH ×2 (05:34→13:19)
[2017-12-29 06:10] LABS: HEMATOCRIT 42.9 % (36.0-47.0); HEMOGLOBIN 14.5 g/dL (12.0-15.5); MEAN CORPUSCULAR HEMOGLOBIN 30.8 pg (27.0-33.4); MEAN CORPUSCULAR HGB CONC 33.8 g/dL (32.0-36.0); MEAN CORPUSCULAR VOLUME 91 fl (80-97); PLATELET COUNT 231 10^3/uL (150-450); RED BLOOD COUNT 4.71 10^6/uL (3.72-5.28); RED CELL DISTRIBUTION WIDTH 12.5 % (11.5-14.0); WHITE BLOOD COUNT 14.7 10^3/uL (4.0-10.5)
[2017-12-29] MEDS: TAMSULOSIN HCL 0.4 MG CAP.SR.24H PO SCH (09:31)
[2017-12-29] MEDS: POTASSIUM CHLORIDE 10 MEQ CAPSULE.ER PO SCH (09:31)
[2017-12-29] MEDS: CLOPIDOGREL BISULFATE 75 MG TABLET PO SCH (09:32)
[2017-12-29] MEDS: METOPROLOL TARTRATE 25 MG TABLET PO SCH (09:32)
[2017-12-29] MEDS: FAMOTIDINE 20 MG TABLET PO SCH (09:32)
[2017-12-29] MEDS: LISINOPRIL 5 MG TABLET PO SCH (09:33)
--- NOTE | 2017-12-29 11:34 | PDOC PROGRESS REPORT ---
Subjective Progress Note for:: 12/29/17 Subjective:: 77-year-old white female with acute non-ST elevated [place]. Troponins trending downward. Event likely took place the evening prior to admission. Heparin discontinued no evidence of bleeding. Patient denies any chest pain since admission. Hemodynamically stable. Patient ambulating without chest pain. White count elevated to 14,000 no obvious source of infection.Case discussed with Dr. Hendrix attempting to find facility for cardiac catheterization. Reason For Visit: NON-ST ELEVATION (NSTEMI) MYOCARDIAL INFARCTION Physical Exam Vital Signs: Temp Pulse Resp BP Pulse Ox 98.1 F 76 18 129/74 H 93 12/29/17 07:06 12/29/17 07:06 12/29/17 07:06 12/29/17 07:06 12/29/17 07:06 Intake & Output 12/28/17 12/29/17 12/30/17 06:59 06:59 06:59 Intake Total 720 940 Balance 720 940 Weight 39.3 kg 36 kg General appearance: PRESENT: no acute distress, thin, well-developed, well- nourished Head exam: PRESENT: atraumatic, normocephalic Neck exam: ABSENT: carotid bruit, JVD, lymphadenopathy, thyromegaly Respiratory exam: PRESENT: clear to auscultation ti. ABSENT: rales, rhonchi, wheezes Cardiovascular exam: PRESENT: RRR. ABSENT: diastolic murmur, rubs, systolic murmur Pulses: PRESENT: normal dorsalis pedis pul Vascular exam: PRESENT: normal capillary refill GI/Abdominal exam: PRESENT: normal bowel sounds, soft. ABSENT: distended, guarding, mass, organolmegaly, rebound, tenderness Extremities exam: PRESENT: full ROM, tenderness - Left knee, other - Diffuse osteoarthritis. ABSENT: calf tenderness, clubbing, pedal edema Neurological exam: PRESENT: alert, awake, CN II-XII grossly intact. ABSENT: motor sensory deficit Psychiatric exam: PRESENT: appropriate affect, normal mood. ABSENT: homicidal ideation, suicidal ideation Skin exam: PRESENT: dry, intact, warm. ABSENT: cyanosis, rash Results Laboratory Results: 12/29/17 05:52 12/28/17 04:15 12/29/17 05:52 WBC 14.7 H RBC 4.71 Hgb 14.5 Hct 42.9 MCV 91 MCH 30.8 MCHC 33.8 RDW 12.5 Plt Count 231 12/25/17 12/26/17 12/26/17 19:36 01:22 07:01 Troponin I 1.380 1.330 1.020 Impressions: Chest X-Ray 12/25/17 14:03 IMPRESSION: Cardiomegaly. Hiatal hernia. No acute findings Assessment & Plan - Diagnosis (1) NSTEMI (non-ST elevated myocardial infarction) Is this a current diagnosis for this admission?: Yes Plan: Patient with anterior EKG changes that improved with treatment in the emergency room highly suspicious for LAD lesion. Cardiology consult noted. Dr. Hendrix to arrange for transfer for cardiac catheterization. Currently still working on finding a facility willing to accept..Lipitor decreased to 10 mg due to excellent lipid profile. Patient may begin to ambulate. Discontinue heparin Begin Lovenox for DVT prophylaxis.continue Plavix. Increase lisinopril to 5 mg daily. (2) HTN (hypertension), benign Is this a current diagnosis for this admission?: Yes Plan: Hemodynamically stable Increase lisinopril to 5 mg daily. Patient's relative bradycardia has resolved tolerating beta-mohini (3) Hypokalemia Is this a current diagnosis for this admission?: Yes Plan: Resolved discontinue p.o. potassium lisinopril has been increased monitor BMPs going forward. (4) Osteoarthritis Qualifiers: Osteoarthritis location: unspecified site Osteoarthritis type: primary Qualified Code(s): M19.91 - Primary osteoarthritis, unspecified site Is this a current diagnosis for this admission?: Yes Plan: Continue patient's MS ContinHaving increased pain in left kneeNo change in medications. (5) Chronic pain Is this a current diagnosis for this admission?: Yes Plan: Continue patient's MS Contin IV morphine as needed for breakthrough pain (6) Leukocytosis Is this a current diagnosis for this admission?: Yes Plan: We will check urinalysis and chest x-ray no obvious source of infection afebrile.Repeat CBC in a.m.
[2017-12-29] MEDS ORDERED: LISINOPRIL 5 MG TABLET PO ONE (13:00)
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
[2017-12-29 15:44] VITALS: BP 143/81
[2017-12-29] MEDS: ISOSORBIDE MONONITRATE 30 MG TAB.ER.24H PO SCH (16:36)
[2017-12-29] MEDS ORDERED: ONDANSETRON HCL INJ/PF 4 MG/2 ML SDV IV PRN (19:00)
[2017-12-29] MEDS ORDERED: ATORVASTATIN CALCIUM 10 MG TABLET PO SCH (22:00)
[2017-12-30] MEDS ORDERED: LISINOPRIL 5 MG TABLET PO SCH (10:00)
[2017-12-30] MEDS ORDERED: ENOXAPARIN SODIUM INJ 30 MG/0.3 ML DISP.SYRIN SUBCUT SCH (10:00)
== END 2017-12-29 18:59 | disposition short-term general hospital (02) | DRG 282 ==
LOC: ER 13:31 → EH 15:36 → 3W 17:04
PROVIDERS: ADMIT Internal Medicine; ATTEND Internal Medicine
DX: I21.4 Non-ST elevation (NSTEMI) myocardial infarction (principal); I10 Essential (primary) hypertension; E87.6 Hypokalemia; M19.90 Unspecified osteoarthritis, unspecified site; D72.829 Elevated white blood cell count, unspecified; G89.29 Other chronic pain; Z75.1 Person awaiting admission to adequate facility elsewhere
CPT/HCPCS: 36415; 71046; 80048; 80053; 80061; 81001; 82272; 82550; 82553; 83735; 84484; 85025; 85027; 85610; 85730; 93005; 93010; 93306; 96365; 99285; J1644; J2270; J2405; J3490

== ENCOUNTER → 2018-10-05 | Outpatient (CLI) | payer MEDICARE, MEDICAID ==
--- NOTE | 2018-10-05 12:42 | WOMENS IMAGING REPORT ---
EXAM DESCRIPTION: BONE DENSITY HIP/SPINE COMPLETED DATE/TIME: 10/05/2018 10:09 am REASON FOR STUDY: M81.0 AGE RELATED OSTEOPOROSIS WITHOUT CURRENT PATHOLOGICAL FRACTURE M81.0 AGE-RE LATED OSTEOPOROSIS W/O CURRENT PATHOLOGICAL FRAC COMPARISON: 09/11/2016 TECHNIQUE: Dual-Energy X-ray Absorptiometry (DEXA) of the AP Spine and Hip. LIMITATIONS: None. FINDINGS: LUMBAR SPINE: The bone mineral density (BMD) measured from L1-L4 in the AP projection correlates with a T-score of -0.8, which is normal as defined by the World Health Organization. HIP: The bone mineral density (BMD) measured in the left hip correlates with a T-score of -2.9, which is o steoporosis as defined by the World Health Organization. IMPRESSION: 1. LUMBAR SPINE: NORMAL. 2. HIP: OSTEOPENIA. COMMENT: The World Health Organization defines low BMD as follows: T-score: Normal: Greater than -1.0 Osteopenia: Between -1.0 and -2.5 Osteoporosis: Less than -2.5 without fractures Established osteoporosis: Less than -2.5 with fractures In general, you may wish to consider: Diagnosis Treatment Follow-up DEXA Normal BMD Prevention 2-3 years Osteopenia Prevention/Therapy 1-2 years Osteoporosis Therapy Yearly TECHNICAL DOCUMENTATION: JOB ID: [id number]- All Rights Reserved Reading location - IP/workstation name: [email or web address]
== END ==
LOC: WI 09:51
PROVIDERS: ATTEND Internal Medicine Hematology & Oncology
DX: M81.0 Age-related osteoporosis without current pathological fracture (principal)
CPT/HCPCS: 77080

== ENCOUNTER → 2019-07-16 | Outpatient (CLI) | payer MEDICARE, MEDICAID ==
[2019-07-16 10:53] LABS: ABSOLUTE BASOPHILS # (AUTO) 0.1 10^3/uL (0.0-0.2); ABSOLUTE EOSINOPHILS # (AUTO) 0.4 10^3/uL (0.0-0.6); ABSOLUTE LYMPHOCYTES (AUTO) 1.5 10^3/uL (0.5-4.7); ABSOLUTE NEUT (AUTO) 5.7 10^3/uL (1.7-8.2); BASOPHILS % (AUTO) 0.9 % (0-2); EOSINOPHILS % (AUTO) 4.3 % (0-6); HEMATOCRIT 37.3 % (36.0-47.0); HEMOGLOBIN 12.5 g/dL (12.0-15.5); LYMPHOCYTES % (AUTO) 17.5 % (13-45); MEAN CORPUSCULAR HGB CONC 33.6 g/dL (32.0-36.0); MEAN CORPUSCULAR VOLUME 89 fl (80-97); MONOCYTES % (AUTO) 11.8 % (3-13); PLATELET COUNT 345 10^3/uL (150-450); RED BLOOD COUNT 4.17 10^6/uL (3.72-5.28); RED CELL DISTRIBUTION WIDTH 13.4 % (11.5-14.0); SEGMENTED NEUTROPHILS % (AUTO) 65.5 % (42-78); TOTAL CELLS COUNTED % (AUTO) 100 %; WHITE BLOOD COUNT 8.8 10^3/uL (4.0-10.5)
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
[2019-07-16 11:17] LABS: ALKALINE PHOSPHATASE 69 U/L (38-126); ANION GAP 6 (5-19); ASPARTATE AMINO TRANSFERASE 23 U/L (14-36); BILIRUBIN,TOTAL 0.3 mg/dL (0.2-1.3); BLOOD UREA NITROGEN 18 mg/dL (7-20); C-REACTIVE PROTEIN 41.6 mg/L (<10.0); CALCIUM 8.8 mg/dL (8.4-10.2); CARBON DIOXIDE 31 mmol/L (22-30); CHLORIDE 102 mmol/L (98-107); GLUCOSE 91 mg/dL (75-110); POTASSIUM 4.1 mmol/L (3.6-5.0); TOTAL PROTEIN 7.9 g/dL (6.3-8.2)
[2019-07-16 11:41] LABS: ERYTHROCYTE SEDIMENTATION RATE 50 mm/hr (0-30)
== END ==
LOC: OD 09:51
PROVIDERS: ATTEND Nurse Practitioner Family
DX: S51.002A Unspecified open wound of left elbow, initial encounter (principal); X58.XXXA Exposure to other specified factors, initial encounter
CPT/HCPCS: 36415; 80053; 85025; 85652; 86140

== ENCOUNTER → 2019-07-30 | Outpatient (CLI) | payer MEDICARE, MEDICAID ==
--- NOTE | 2019-07-30 11:57 | RADIOLOGY REPORT (SQ) ---
EXAM DESCRIPTION: ELBOW LEFT >2 VIEWS IMAGES COMPLETED DATE/TIME: 07/30/2019 10:26 am REASON FOR STUDY: PRESSURE ULCER OF LEFT ELBOW, STAGE 4 L89.024 PRESSURE ULCER OF LEFT ELBOW, STAGE 4 COMPARISON: None. NUMBER OF VIEWS: Four views. TECHNIQUE: AP, lateral, and both oblique radiographic images acquired of the left elbow. LIMITATIONS: None. FINDINGS: MINERALIZATION: Normal. BONES: No acute fracture or dislocation. No periosteal reaction or erosion. JOINT: No effusion. SOFT TISSUES: Soft tissue defect over the olecranon. There is no subcutaneous emphysema or radiopaqu e foreign body. OTHER: No other finding. IMPRESSION: Soft tissue defect over the olecranon without a superimposed acute osseous abnormality. TECHNICAL DOCUMENTATION: JOB ID: [id number] 2010 [employer]- All Rights Reserved Reading location - IP/workstation name: [email or web address]
== END ==
LOC: WC 10:06
PROVIDERS: ATTEND Nurse Practitioner Family
DX: L89.024 Pressure ulcer of left elbow, stage 4 (principal)